=== PATIENT | female | born 1990 | race Caucasian/White ===

== ENCOUNTER → 2020-09-18 10:30 | Outpatient (BNVA) | payer MEDICARE, SELFPAY | PROVIDERS: Visit Provider Nurse Practitioner Family | DX: J02.0 Streptococcal pharyngitis (principal); B37.0 Candidal stomatitis; K12.1 Other forms of stomatitis | CPT/HCPCS: 87071; 87880 ==

== ENCOUNTER → 2021-10-16 10:03 | Outpatient (BNVA) | payer BC, MEDICARE, SELFPAY | PROVIDERS: Visit Provider Registered Nurse | DX: Z79.899 Other long term (current) drug therapy (principal) | CPT/HCPCS: 80053; 80061; 82306; 82607; 83036; 84443; 85025 ==

== ENCOUNTER → 2022-07-30 14:42 | Outpatient (BNVA) | payer MEDICARE, MEDICAID, SELFPAY | PROVIDERS: Referring Provider Emergency Medicine; Visit Provider Surgery | DX: K62.5 Hemorrhage of anus and rectum (principal) | CPT/HCPCS: 99203 ==

== ENCOUNTER 2022-08-21 06:08 | Day surgery (SDC) | payer MEDICARE, MEDICAID, SELFPAY ==
[2022-08-19 09:58] VITALS: BMI 30.8
[2022-08-21 06:34] VITALS: BP 121/80; PULSE 66; RESP 17; TEMP 36.1; O2SAT 100
[2022-08-21] MEDS: sodium chloride 0.9% 1,000 ML 30 ML IV (06:39)
[2022-08-21 06:41] LABS: OR HCG Qualitative Urine Negative (Negative)
--- NOTE | 2022-08-21 07:33 | ANES.PREANE2 ---
Pre-Anesthetic Assessment Height/Weight: Height 1.55 m Weight 73.936 kg Temp Pulse Resp BP Pulse Ox O2 Del Method 97.0 F L 66 17 121/80 100 08/21/22 06:34 08/21/22 06:34 08/21/22 06:34 08/21/22 06:34 08/21/22 06:34 08/21/22 06:34 Preop Diagnosis: Blood in stool Operation Date: 08/21/22 08:00 Proposed Procedures p Colonoscopy 27536,K62.5(Not Applicable) - Bakari Gardner, DO Was Beta Nicole taken within 24 hours: N/A Was Clonidine taken within 24 hours: N/A Last intake: Intake Last Liquid Date 08/20/22 Last Liquid Time 23:00 Last Solid Date 08/19/22 Last Solid Time 22:00 Social Tobacco Exam alert, oriented x 3, clear to auscultation bilaterally and regular rate & rhythm Airway Submandibular: within normal limits Cervical ROM: within normal limits Mallampati: Class II Dentition: full (Poor dentition) History/ROS No significant history except as noted and No significant complaints Pulmonary None reported CV/HEM None reported None reported Hepatic None reported GI None reported Metabolic None reported Musc/skel None reported Neuropsych Anxiety and Depression Anesthetic Plan ASA status: 2 Anesthesia: Anesthesia Evaluation and MAC Risk of > 500 ml blood loss (7ml/kg in children): No Medications/Allergies Home Medications Medication Instructions Recorded Confirmed Last Taken Type hydroxyzine pamoate 25 mg capsule 25 mg PO BID PRN anxiety, 10/15/21 08/21/22 3 Months Ago Rx (Vistaril) difficulty sleeping, or allergies ~05/19/22 #60 caps cholecalciferol (vitamin D3) 250 250 mcg PO DAILY #30 caps 10/20/21 08/21/22 1 Week Ago Rx mcg (10,000 unit) capsule ~08/12/22 fish, borage, flaxseed oils-omega 1 cap PO DAILY circulation, 10/20/21 08/21/22 1 Week Ago Rx 3,6,9 cb #1 400 mg-400 mg-400 mg cholesterol #90 caps ~08/12/22 cap ferrous sulfate 325 mg (65 mg 325 mg PO DAILY 08/19/22 08/21/22 1 Week Ago History iron) tablet (Iron (ferrous ~08/12/22 sulfate)) Allergies Allergy/AdvReac Type Severity Reaction Status Date / Time No Known Allergies Allergy Verified 08/21/22 06:29 Current Medications Generic Name Dose Route Start Last Admin Trade Name Tejas PRN Reason Stop Dose Admin Sodium Chloride 1,000 mls @ 30 mls/hr 08/21/22 06:30 08/21/22 06:39 Sodium Chloride 0.9% IV 08/22/22 06:29 30 mls/hr .Q24H MISHA Administration PFSH Anesthesia Medical History Dog bite Dyslipidemia Psychiatric care Smoking Vitamin D deficiency Social History Smoking and tobacco status: current every day smoker Alcohol intake: never Female Reproductive History Date of last menstrual period: 08/19/22 Data Anesthesia Cardiac Studies: No Data to Display
--- NOTE | 2022-08-21 08:01 | W.PM.OPSUD ---
Surgery/Procedure H&P Update DATE OF PROCEDURE: August 21, 2022 DATE H&P PERFORMED: 07/30/22 PREOP DIAGNOSIS: Blood in stool PLANNED PROCEDURE: Operation Date: 08/21/22 08:00 Proposed Procedures p Colonoscopy 97693,K62.5(Not Applicable) - Bakari Gardner DO
[2022-08-21 08:27] VITALS: BP 142/80; PULSE 83; RESP 20; TEMP 36.2; O2SAT 97
[2022-08-21] MEDS: ondansetron 2 mg/ML SDV 2 mL 4 MG IVP (08:35)
[2022-08-21 08:40] VITALS: BP 115/76; PULSE 76; RESP 17; O2SAT 99
--- NOTE | 2022-08-21 14:08 | ANE.PACU2 ---
Inpatient post-anesthesia follow up: Airway intact: Yes Vital signs: Temperature 97.2 F Pulse Rate 76 Respiratory Rate 17 Blood Pressure 115/76 Pulse Oximetry 99 Oxygen Delivery Me thod Room Air Oxygen Flow Rate 4 Fraction of Inspir ed Oxygen Hydration adequate: Yes Nausea and vomiting: No Pain level: 2 Mental status: Baseline
== END 2022-08-21 09:04 | disposition home or self-care (01) ==
PROVIDERS: Anesthesiology; Visit Provider Surgery
PROC: 0DJD8ZZ Inspection of Lower Intestinal Tract, Via Natural or Artificial Opening Endoscopic (ICD-10-PCS; CPT 45378; principal; 2022-08-21 08:00)
DX: K62.5 Hemorrhage of anus and rectum (principal); K63.89 Other specified diseases of intestine; K64.8 Other hemorrhoids; E78.5 Hyperlipidemia, unspecified; F17.200 Nicotine dependence, unspecified, uncomplicated
CPT/HCPCS: 45380; 81025; 84703; 88305; 96374; J2405; J2704; J3490; J7030

== ENCOUNTER → 2022-09-03 09:51 | Outpatient (BNVA) | payer MEDICARE, MEDICAID, SELFPAY | PROVIDERS: Visit Provider Surgery | DX: Z09 Encounter for follow-up examination after completed treatment for conditions other than malignant neoplasm (principal) | CPT/HCPCS: 99213 ==

== ENCOUNTER → 2025-06-09 09:47 | Outpatient (BNVA) | payer MEDICARE, MEDICAID, SELFPAY | PROVIDERS: Visit Provider Nurse Practitioner | DX: S46.912A Strain of unspecified muscle, fascia and tendon at shoulder and upper arm level, left arm, initial encounter (principal); X58.XXXA Exposure to other specified factors, initial encounter | CPT/HCPCS: 73030 ==